=== PATIENT | female | born 1955 | race Caucasian/White ===

== ENCOUNTER 2017-01-01 15:32 | Emergency (ER) | payer MEDICAID, OTHER ==
[~2017-01-01] VITALS: Ht 167.6 cm; Wt 76.7 kg
[2017-01-01 15:45] VITALS: BP 137/100; PULSE 96; RESP 19; TEMP 99.1; O2SAT 92
--- NOTE | 2017-01-01 16:12 | PD ---
HPI . Chest cold Chief Complaint: Cold / Flu Symptoms Time Seen by Provider: 15:56 Travel History International Travel<30 days: No Contact w/Intl Traveler<30days: No Traveled to known affect area: No History of Present Illness HPI Patient presents complaining with chest cold for about 5 days. She states that she has had this before and is generally treated with pain nebulizer treatment and prednisone. She states that she is usually discharged with an inhaler, prednisone and a Z-Florentino. She states her last episode was a couple of years ago. She reports paroxysmal coughing that cause shortness of breath. She has not been running a fever. She has not had sputum production. [id number]: Chest DURATION: 5 days TIMING: Continuous CONTEXT: Infrequent episodes of bronchitis in the past PFSH Past Medical History Medical History: Denies Significant Hx Tetanus Vaccination: < 5 Years Influenza Vaccination: No ?: Not Menopausal: Yes Past Surgical History Eye Surgery: Yes (Lasik) Gynecologic Surgery: Yes (Conization ) Other Surgery: Yes (Lip) Social History Alcohol Use: Yes (7 beers daily "since on vacation") Tobacco Use: Yes (12/18 PPD) Substance Use: No Allergies-Medications (Allergen,Severity, Reaction): Coded Allergies: Naprosyn (Verified Allergy, Severe, Anaphylaxis, 01/01/17) Reported Meds & Prescriptions Reported Meds & Active Scripts Active No Active Prescriptions or Reported Medications Review of Systems Except as stated in HPI: all other systems reviewed are Neg General / Constitutional: No: Fever, Chills Respiratory: Positive: Cough, Shortness of Breath, Wheezing Physical Exam Narrative GENERAL: Awake and alert and in no acute distress. SKIN: Warm and dry. HEAD: Atraumatic. Normocephalic. EYES: Pupils equal and round. ENT: No nasal bleeding or discharge. Mucous membranes pink and moist. NECK: Trachea midline. Neck is supple. CARDIOVASCULAR: Regular rate and rhythm. Heart sounds are normal. RESPIRATORY: No accessory muscle use. Lungs have good air movement. Diffuse coarse expiratory wheezing. GASTROINTESTINAL: Abdomen soft, non-tender, nondistended. MUSCULOSKELETAL: No obvious deformities. No edema. NEUROLOGICAL: Awake and alert. No obvious cranial nerve deficits. Motor grossly within normal limits. Normal speech. PSYCHIATRIC: Appropriate mood and affect; insight and judgment normal. Data Data Last Documented VS Vital Signs Date Time Temp Pulse Resp B/P Pulse Ox O2 Delivery O2 Flow Rate FiO2 01/01/17 15:55 16 Room Air 01/01/17 15:45 99.1 96 137/100 92 Orders Prednisone (Deltasone) (01/01/17 16:15) Albuterol-Ipratropium Neb (Duoneb Neb) (01/01/17 16:15) MDM Medical Decision Making Medical Screen Exam Complete: Yes Emergency Medical Condition: Yes Differential Diagnosis Differential diagnosis of dyspnea includes but is not limited to congestive heart failure, pneumonia, wheezing, pneumothorax, pulmonary embolism Narrative Course Patient presents complaining with cough and wheezing. She will be treated with prednisone and a nebulizer. I anticipate a rapid discharge. Patient is better following a single neb. Diagnosis Primary Impression: Bronchitis Patient Instructions: Acute Bronchitis (DC), General Instructions Med/Other Pt SpecificInfo: Prescription(s) given Scripts Guaifenesin ER 12 HR 1,200 Mg Taber1,200 Mg PO BID #30 TAB Ref 0 Prov:Tran Restrepo MD 01/01/17 Azithromycin 250 Mg [id number] Mg PO DIRECTED #6 TAB Ref 0 Take 2 tabs (500 mg) on day 1 then 1 tab daily x 4 days. Prov:Tran Restrepo MD 01/01/17 Prednisone 20 Mg Tab60 Mg PO DAILY 5 Days Ref 0 Prov:Tran Restrepo MD 01/01/17 Albuterol 18 GM Inh (Ventolin Hfa 18 GM Inh)90 Mcg/Act Aer2 Puff INH Q4-6H PRN ( SHORTNESS OF BREATH) #1 INHALER Ref 0 Prov:Tran Restrepo MD 01/01/17 Disposition: 01 DISCHARGE HOME Condition: Stable Tran Restrepo MD Jan 01, 2017 16:12
[2017-01-01] MEDS ORDERED: predniSONE 20 MG TAB PO ONE (16:15)
[2017-01-01] MEDS ORDERED: RESP: ALBUTEROL 2.5 MG/IPRATROPIUM 0.5 MG NEB (SCH) INH ONE (16:15)
[2017-01-01] MEDS ORDERED: AZIT250T3 PO (16:52)
[2017-01-01] MEDS ORDERED: GUAI10TA PO (16:52)
[2017-01-01] MEDS ORDERED: VENTAER INH (16:52)
[2017-01-01] MEDS ORDERED: PRED20 PO (16:52)
[2017-01-01 17:10] VITALS: BP 130/87; PULSE 89; RESP 18; O2SAT 93
== END 2017-01-01 17:20 | disposition home or self-care (01) ==
LOC: PHED 15:32
DX: J40 Bronchitis, not specified as acute or chronic (principal); F17.210 Nicotine dependence, cigarettes, uncomplicated
CPT/HCPCS: 94664; 99283; J7512